=== PATIENT | male | born 1995 | race Caucasian/White ===

== ENCOUNTER 2020-06-30 23:19 | Emergency (ER) | payer SELFPAY ==
[2020-06-30 23:23] VITALS: BP 159/91; PULSE 88; RESP 17; TEMP 36.7; O2SAT 99; BMI 25.1
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
[2020-07-01] MEDS: silver sulfadiazine cream 1% 50 gm 1 APPLIC TOPICAL (00:01)
== END 2020-07-01 00:04 | disposition home or self-care (01) ==
PROVIDERS: Emergency Provider Nurse Practitioner Family
DX: T20.09XA Burn of unspecified degree of multiple sites of head, face, and neck, initial encounter (principal); X08.8XXA Exposure to other specified smoke, fire and flames, initial encounter; F17.210 Nicotine dependence, cigarettes, uncomplicated
CPT/HCPCS: 99282

== ENCOUNTER 2021-02-02 01:31 | Emergency (ER) | payer SELFPAY ==
[2021-02-02 01:36] VITALS: BP 150/69; PULSE 69; RESP 18; TEMP 36.6; O2SAT 99; BMI 38.4
--- NOTE | 2021-02-02 01:38 | ED_ITS ---
HPI - Dental/Oral General: Chief complaint: Dental/Oral Stated complaint: tooth pain Time Seen by Provider: 02/02/21 01:34 Source: patient Mode of arrival: ambulatory Limitations: no limitations History of Present Illness: HPI Narrative: 25-year-old male states has been having dental pain to left upper tooth for days that got much worse tonight. States pain is sharp in nature and rates it an 8 out of 10 denies any difficulty eating denies difficulty swallowing. Denies any fevers states it is worse with palpation improved with rest. Denies any radiation of his pain Associated symptoms: Denies fever(s) Review of Systems Const: Denies: fever(s), chills, body aches or change in appetite Eyes: Denies: blurry vision or eye discomfort ENMT: Reports: mouth pain Card: Denies: chest pain Resp: Denies: dyspnea GI: Denies: abdominal pain, nausea, vomiting or diarrhea : Denies: dysuria Musc: Denies: neck pain or back pain Skin/Breast: Denies: rash Neuro: Denies: headache(s) Psych: Denies: depression Reinaldo/Lymph: Denies: easy bruising All/Imm: Denies: urticaria PFSH ED PFSH: Social History (Updated 06/25/19 @ 13:50 by Mihaela Fisher LPN) Smoking and tobacco status: current every day smoker Alcohol intake: never Physical Exam Const: COMMON NORMALS: no acute distress and patient oriented x3 HENMT: TEETH & GINGIVA IMAGES: 1. Tenderness over tooth #13 some gingival inflammation no abscess no trismus THROAT: posterior oropharynx normal Eye: COMMON NORMALS: EOMs intact bilaterally Neck/C-Spine: COMMON NORMALS: full ROM and supple Chest: COMMONS NORMALS: normal inspection of the chest Resp: COMMON NORMALS: normal respiratory effort Cardio: COMMON NORMALS: regular rate RATE: regular rate GI: INSPECTION: Yes normal to inspection Extremity: COMMON NORMALS: normal to inspection Neuro: COMMON NORMALS: patient oriented x3 Psych: COMMON NORMALS: mental status grossly normal, Normal thought process present and cooperative THOUGHT PROCESS: Normal thought process present Skin: COMMON NORMALS: no rashes or lesions noted GENERAL SKIN EXAM: no rashes or lesions noted MDM - Dental/Oral MDM Narrative: Medical decision making narrative: Patient presents with dental pain he has no signs of trismus or abscess will place on antibiotics she is to follow-up with dentist with prescribed pain meds he is return if worsening he understands agrees the plan. Discharge Plan Discharge Patient Disposition: Home Clinical Impression: Pain, dental Condition: Stable Prescriptions: New cephalexin 500 mg capsule 500 mg PO QID 7 Days Qty: 28 RF: 0 Naprosyn 500 mg tablet 500 mg PO BID PRN (Reason: pain) Qty: 20 RF: 0 No Action fluticasone propionate 50 mcg/actuation spray,suspension 1 spray INTRANASAL BID Qty: 15.8 RF: 0 tramadol 50 mg tablet 50 mg PO TID PRN (Reason: pain) Qty: 10 RF: 0 Silvadene 1 % cream 1 applic topical BID PRN (Reason: wound healing) Qty: 50 RF: 0 Discharge Orders: Discharge ED (Routine); Ordered 02/02/21 Ordered By: Caitie Hernandez Discharge Diet: Advance as tolerated Discharge Activity: Resume usual activity Patient Instructions: Toothache (ED), Opioid Safety Coding Level of Care Code ED Dental Laboratory Assistant for Rikki Finley
[2021-02-02] MEDS: HYDROcodone-acetaminophen 7.5-325 mg Tablet 1 TAB PO (01:42)
== END 2021-02-02 01:43 | disposition home or self-care (01) ==
PROVIDERS: Emergency Provider Emergency Medicine
DX: K08.89 Other specified disorders of teeth and supporting structures (principal); F17.200 Nicotine dependence, unspecified, uncomplicated
CPT/HCPCS: 99282

== ENCOUNTER 2021-04-10 09:03 | Emergency (ER) | payer SELFPAY ==
[2021-04-10 09:12] VITALS: BP 135/74; PULSE 65; RESP 14; TEMP 36.5; O2SAT 99; BMI 31.4
--- NOTE | 2021-04-10 09:26 | W.ED.MALEGU ---
HPI - Male Genitourinary General: Chief complaint: Urogenital-Male Stated complaint: LOWER LEFT BACK/SIDE PAIN GOING INTO GROIN Time Seen by Provider: 04/10/21 09:22 Source: patient Mode of arrival: ambulatory Limitations: no limitations History of Present Illness: HPI Narrative: 25-year-old male presents to the ER today for left flank and groin pain that started about 3 hours ago. Patient reports it is a constant pain that is a burning pain. Patient reports when he tries to urinate he is unable to produce much urine and it hurts to pee. Patient rates his pain an 8 out of 10 at this time. Patient reports nausea associated. Patient denies any history of kidney stones. Patient denies any bulges in the groin. Patient has not take anything for his pain at this time. Patient denies headache, fever, chills, chest pain, shortness of breath, diarrhea, constipation. Onset (ago): hour(s) Duration: constant Location: left inguinal region and left flank Radiation: left inguinal region Severity: severe Severity scale (1-10): 8 Quality: aching and burning Relieving factors: none Associated symptoms: Reports dysuria and nausea Review of Systems General: Reports: 10 or more systems reviewed and unremarkable except in HPI and below GI: Reports: nausea : Reports: dysuria PFSH ED PFSH: Social History Smoking and tobacco status: current every day smoker Alcohol intake: never Physical Exam Const: COMMON NORMALS: average body habitus and patient oriented x3 GENERAL APPEARANCE: cooperative; not comfortable (pt appears very uncomfortable) Eye: COMMON NORMALS: conjunctivae normal CONJUNCTIVA: Yes conjunctivae normal Neck/C-Spine: COMMON NORMALS: full ROM and no lymphadenopathy Resp: COMMON NORMALS: normal respiratory effort, No retractions and clear to auscultation bilaterally EFFORT & INSPECTION: Yes able to speak in complete sentences AUSCULTATION: clear to auscultation bilaterally, no rales, no rhonchi and no wheezes Cardio: COMMON NORMALS: regular rate and regular rhythm RATE: regular rate RHYTHM: regular rhythm GI: COMMON NORMALS: Soft to palpation PALPATION: Yes Soft to palpation and Yes Tenderness to palpation present (GI) Details: LLQ : COMMON NORMALS: Yes no CVA tenderness BLADDER/KIDNEY EXAM: Yes no CVA tenderness Back/Pelvis: COMMON NORMALS: no CVA tenderness OTHER: L flank TTP Extremity: COMMON NORMALS: normal to inspection and full ROM Neuro: COMMON NORMALS: patient oriented x3, moves all extremities, no sensory deficits noted and gait normal Psych: COMMON NORMALS: mental status grossly normal, Normal thought process present and cooperative THOUGHT PROCESS: Normal thought process present Skin: COMMON NORMALS: no rashes or lesions noted GENERAL SKIN EXAM: no rashes or lesions noted Course ED course: Patient presents to the ER today for left flank pain radiating into the groin and difficulty urinating. Patient denies any history of kidney stones. We will get lab work in addition to a CT of the abdomen pelvis to rule out a kidney stone. Vital Signs: Vital signs: Vital Signs Temperature 97.7 F 04/10/21 09:12 Pulse Rate 65 04/10/21 09:12 Respiratory Rate 14 04/10/21 09:12 Blood Pressure 135/74 04/10/21 09:12 Pulse Oximetry 99 04/10/21 09:12 MDM - Male MDM Narrative: Medical decision making narrative: 25-year-old male presents to the ER today for left flank pain radiating into the groin times several hours. Patient denies any history of kidney stones. He does report pain with urination and decreased urination. On exam patient is tender in the left flank and based on history a stone is likely. CT of the abdomen pelvis does indicate a left ureteral stone near the junction and close to passing. This is small however has caused some obstruction. Patient was given a liter of fluids, Zofran, Toradol, and tamsulosin. Patient reported significant improvement in pain prior to discharge. Patient was given stop to strain his urine at home. We will send patient home with Zofran Toradol and tamsulosin. Patient should follow-up with PCP in 3 to 5 days. Return to the ER with any new or worsening symptoms. Patient verbalized understanding and is in agreement with the treatment plan. Lab Data: Attestation: I reviewed the patient's lab results. Labs: Lab Results 04/10/21 04/10/21 04/10/21 10:47 10:47 11:10 WBC 14.4 10^3/uL H 10 ^3/uL (4.0-10.0) RBC 4.81 10^6/uL 10^6 /uL (4.1-5.3) Hgb 14.9 g/dL g/dL (11.7-16.6) Hct 43.5 % % (42.0-52.0) MCV 90.4 fl fl (80-94) MCH 31.0 pg pg (28.0-34.0) MCHC 34.3 g/dL g/dL (30.0-36.0) RDW 12.7 % % (12.1-15.1) Plt Count 279 10^3/cmm 10^3 /cmm (130-400) MPV 10.3 fL fL (7.4-10.4) Neut % (Auto) 86.2 % % Lymph % (Auto) 6.5 % % [place] % (Auto) 4.6 % % Eos % (Auto) 1.7 % % Baso % (Auto) 0.5 % % Neut # (Auto) 12.38 10^3/uL H 1 0^3/uL (1.8-7.7) Lymph # (Auto) 0.9 10^3/uL 10^3/ uL (0.8-4.8) [place] # (Auto) 0.7 10^3/uL 10^3/ uL (0.2-0.9) Eos # (Auto) 0.2 10^3/uL 10^3/ uL (0.0-0.8) Baso # (Auto) 0.1 10^3/uL 10^3/ uL (0.0-0.1) Nucleated RBC % (a uto) 0 % % Nucleated RBCs # 0.0 /100WBC /100W BC Sodium 136 mmol/L mmol/L (136-145) Potassium 3.9 mmol/L mmol/L (3.5-5.1) Chloride 104 mmol/L mmol/L (98-107) Carbon Dioxide 21 mmol/L L mmol/ L (22-29) Anion Gap 14.9 (5-19) BUN 9 mg/dL mg/dL (6-20) Creatinine 0.8 mg/dL mg/dL (0.7-1.2) GFR Calculation 116.9 mL/min mL/m in (90-130) Glucose 92 mg/dL mg/dL (65-115) Calculated Osmolal ity 280 mOsm/kg L mOs m/kg (285-295) Calcium 8.9 mg/dL mg/dL (8.5-10.5) Total Bilirubin 0.5 mg/dL mg/dL (0.15-1.2) AST 75 U/L H U/L (0-40) ALT 140 U/L H U/L (0-41) Alkaline Phosphata se 80 IU/L IU/L (40-130) Total Protein 7.1 g/dL g/dL (6.6-8.7) Albumin 4.3 g/dL g/dL (3.5-5.2) Globulin 2.8 g/dL g/dL (1.3-4.6) Urine Color Dark yellow (Yellow) Urine Appearance Clear (CLEAR) Urine pH 5 (5-7) Ur Specific Gravit y 1.030 (1.005-1.030) Urine Protein Trace (Negative) Urine Glucose (UA) Norm (Normal) Urine Ketones 2+ H (Negative) Urine Blood 3+ H (Negative) Urine Nitrate Negative (Negative) Urine Bilirubin 1+ H (Negative) Urine Urobilinogen 4 mg/dL H mg/dL (Negative) Ur Leukocyte [place] ase Negative (Negative) Urine RBC 5-10 /hpf H /hpf (0-2) Urine WBC 0-4 /hpf H /hpf (0-5) Ur Squamous Epith Cells None /hpf /hpf (0-5) Calcium Oxalate Cr ystal 5-10 /hpf H /hpf Amorphous Sediment Not Reportable Urine Bacteria Trace /hpf /hpf (NONE) Urine Mucus 2+ /hpf /hpf Imaging Data: CT Abd/Pel: Radiologist's impression: [address] [address] [address] Scan Report Signed Patient: Christian Em Unit #: [id number] : [id number] Age/Sex: 25 / M ADM Date: 04/10/21 Loc: ER Room/Bed: Attending Dr: Ordering Provider/Ordering MD: Cary Orona Date of Service: 04/10/21 Procedure(s): CT kidney stone [address] Accession Number(s): [id number] Report Number: [id number] PROCEDURE INFORMATION: Exam: CT Abdomen And Pelvis Without Contrast Exam date and time: 04/10/2021 9:25 AM Age: 25 years old Clinical indication: Abdominal pain; Flank; Left; Additional info: Groin/flank pain (l side) TECHNIQUE: Imaging protocol: Computed tomography of the abdomen and pelvis without contrast. Radiation optimization: All CT scans at this facility use at least one of these dose optimization techniques: automated exposure control; mA and/or kV adjustment per patient size (includes targeted exams where dose is matched to clinical indication); or iterative reconstruction. COMPARISON: No relevant prior studies available. RADIATION DOSE METRICS: Total DLP (mGy-cm): 1564.45 FINDINGS: Liver: Mild-moderate geographic hypoattenuation of the liver is present consistent with hepatic steatosis. Gallbladder and bile ducts: Normal. No calcified stones. No ductal dilation. Pancreas: Normal. No ductal dilation. Spleen: Small splenic granulomatous calcification. Adrenal glands: Normal. No mass. Kidneys and ureters: The left pelvic ureter is mildly dilated to the level of a 4.0 mm calculus just above the ureterovesical junction. The left kidney shows mild pelviectasis and mild abdominal ureterectasis with mild perinephric stranding. Right mid renal lateral 2.0 mm calyceal calculus. Left mid-upper renal posterolateral 3.7 mm calyceal calculus. Stomach and bowel: Unremarkable. No obstruction. No mucosal thickening. Appendix: No evidence of appendicitis. Intraperitoneal space: No free air. No significant fluid collection. Vasculature: Unremarkable. No abdominal aortic aneurysm. Lymph nodes: No enlarged lymph nodes. Urinary bladder: The urinary bladder is decompressed and difficult to assess. Reproductive: Unremarkable as visualized. Bones/joints: Unremarkable. No acute fracture. Soft tissues: A tiny paraumbilical hernia containing only abdominal fat is noted. CT/CT kidney stone 43511 IMPRESSION: 1. Left obstructive uropathy secondary to a left distal pelvic ureteral calculus. 2. Bilateral renal calyceal lithiasis. 3. Fatty infiltration of the liver. Dictated By: Juan Cohen MD Signed By: Juan Cohen MD Signed Date/Time: 04/10/21 1024 DD/ 0925 Critical Care Time Critical Care Time: Critical Care Time: No Discharge Plan Discharge Patient Disposition: Home Clinical Impression: Acute unilateral obstructive uropathy Urinary tract infection Qualifiers: Urinary tract infection type: acute cystitis Hematuria presence: with hematuria Qualified Code(s): N30.01 - Acute cystitis with hematuria Condition: Stable Prescriptions: New ketorolac 10 mg tablet 10 mg PO Q8H PRN (Reason: pain) 3 Days RF: 0 tamsulosin 0.4 mg capsule 0.4 mg PO DAILY Qty: 14 RF: 0 Zofran 4 mg tablet 4 mg PO Q8H PRN (Reason: nausea and vomiting) 4 Days RF: 0 Cipro 250 mg tablet 250 mg PO BID Qty: 10 RF: 0 No Action fluticasone propionate 50 mcg/actuation spray,suspension 1 spray INTRANASAL BID Qty: 15.8 RF: 0 Naprosyn 500 mg tablet 500 mg PO BID PRN (Reason: pain) Qty: 20 RF: 0 tramadol 50 mg tablet 50 mg PO TID PRN (Reason: pain) Qty: 10 RF: 0 Silvadene 1 % cream 1 applic topical BID PRN (Reason: wound healing) Qty: 50 RF: 0 Discharge Orders: Discharge ED (Routine); Ordered 04/10/21 Ordered By: Cary Orona Discharge Diet: Usual diet Discharge Activity: Resume usual activity Patient Instructions: Kidney Stones (ED), How to Strain Your Urine (ED), Opioid Safety Activity Restrictions/Additional Instructions: Take ketorolac, Zofran, and tamsulosin as prescribed. Take antibiotic as prescribed. Push fluids. Follow-up with PCP in 2 to 3 days. Strain urine until stone passes. Return to the ER with any new or worsening symptoms. Coding Level of Care Code ED Veneer Glue Jointer Feedback for Rikki Finley Exam Comprehensive
[2021-04-10] MEDS: sodium chloride 0.9% 1,000 ML 999 ML IV (10:15)
[2021-04-10] MEDS: ketorolac 30 mg/mL INJ 15 MG IVP (10:20)
[2021-04-10] MEDS: ondansetron 2 mg/ML SDV 2 mL 4 MG IVP (10:22)
[2021-04-10 10:57] LABS: Basophils # 0.1 10^3/uL (0.0-0.1); Basophils % 0.5 %; Eosinophils # 0.2 10^3/uL (0.0-0.8); Eosinophils % 1.7 %; Hematocrit 43.5 % (42.0-52.0); Hemoglobin 14.9 g/dL (11.7-16.6); Lymphocytes # 0.9 10^3/uL (0.8-4.8); Lymphocytes % 6.5 %; Mean Corpuscular HGB Conc 34.3 g/dL (30.0-36.0); Mean Corpuscular Volume 90.4 fl (80-94); Mean Platelet Volume 10.3 fL (7.4-10.4); Monocytes # 0.7 10^3/uL (0.2-0.9); Monocytes % 4.6 %; Neutrophils # 12.38 10^3/uL (1.8-7.7); Neutrophils % 86.2 %; Nucleated Red Blood Cells % 0 %; Platelet Count 279 10^3/cmm (130-400); Red Blood Count 4.81 10^6/uL (4.1-5.3); Red Cell Distribution Width 12.7 % (12.1-15.1); White Blood Count 14.4 10^3/uL (4.0-10.0)
[2021-04-10] MEDS: tamsulosin 0.4 mg Capsule PO (11:08)
[2021-04-10 11:21] LABS: Alanine Aminotransferase 140 U/L (0-41); Albumin Level 4.3 g/dL (3.5-5.2); Alkaline Phosphatase 80 IU/L (40-130); Anion Gap 14.9 (5-19); Aspartate Amino Transferase 75 U/L (0-40); Blood Urea Nitrogen 9 mg/dL (6-20); Calcium 8.9 mg/dL (8.5-10.5); Carbon Dioxide 21 mmol/L (22-29); Chloride 104 mmol/L (98-107); Creatinine Clr Calc Pharmacy 150.6716; Globulin 2.8 g/dL (1.3-4.6); Glomerular Filtration Rate 116.9 mL/min (90-130); Glucose 92 mg/dL (65-115); Osmolality Calculated 280 mOsm/kg (285-295); Potassium 3.9 mmol/L (3.5-5.1); Sodium 136 mmol/L (136-145); Total Bilirubin 0.5 mg/dL (0.15-1.2); Total Protein 7.1 g/dL (6.6-8.7)
[2021-04-10 11:50] LABS: Bilirubin Urine 1+ (Negative); Blood Urine 3+ (Negative); Glucose Urine UA Norm (Normal); Ketones Urine 2+ (Negative); Nitrate Urine Negative (Negative); Protein Urine Trace (Negative); Urine Appearance Clear (CLEAR); Urine Color Dark Yellow (Yellow); pH Urine 5 (5-7)
[2021-04-10 11:51] LABS: Add Urine Culture? No; Add Urine Microscopic? YES; Bacteria Urine TRACE /hpf; Leukocyte Esterase Urine Negative (Negative); Mucus Urine 2+ /hpf; Urobilinogen Urine 4 mg/dL (Negative); WBC Urine 0-4 /hpf (0-5)
--- NOTE | 2021-04-10 12:49 | PC.NURSE ---
reviewed discharge information with patient, verbalizes understanding for instructions, medications and follow up appt. pt samia from the ED with all belongings
== END 2021-04-10 12:54 | disposition home or self-care (01) ==
PROVIDERS: Emergency Provider Physician Assistant
DX: N13.9 Obstructive and reflux uropathy, unspecified (principal); N20.1 Calculus of ureter; N30.01 Acute cystitis with hematuria; F17.200 Nicotine dependence, unspecified, uncomplicated
CPT/HCPCS: 36415; 74176; 80053; 81001; 85025; 96361; 96374; 96375; 99284; J1885; J2405; J7030

== ENCOUNTER 2022-03-23 01:42 | Emergency (ER) | payer SELFPAY ==
[2022-03-23 01:49] VITALS: BP 146/80; PULSE 85; RESP 20; TEMP 36.8; O2SAT 98; BMI 28.8
--- NOTE | 2022-03-23 01:53 | ED_ITS ---
HPI - Dental/Oral General: Chief complaint: Dental/Oral Stated complaint: Dental Pain Time Seen by Provider: 03/23/22 01:43 Source: patient Mode of arrival: ambulatory Limitations: no limitations History of Present Illness: 26-year-old male who states he has had dental pain since 2 days in his left lower molar he states that he has had swelling he has noticed pain is a 7 out of 10 denies any fever denies any difficulty swallowing. He has an appoint with a dentist on the Associated symptoms: Denies fever(s) Review of Systems Const: Denies: fever(s), chills, body aches or change in appetite Eyes: Denies: blurry vision or eye discomfort ENMT: Reports: mouth pain Card: Denies: chest pain Resp: Denies: dyspnea GI: Denies: abdominal pain, nausea, vomiting or diarrhea : Denies: dysuria Musc: Denies: neck pain or back pain Skin/Breast: Denies: rash Neuro: Denies: headache(s) Psych: Denies: depression Reinaldo/Lymph: Denies: easy bruising All/Imm: Denies: urticaria PFSH ED PFSH: Medical History No pertinent past medical history Social History Smoking and tobacco status: current every day smoker Alcohol intake: never Procedures Abscess I/D Site: other (dental) Side (if applicable): left Technique: incised with #11 blade Irrigation: No Packing used?: none Nerve Block Nerve Block 1: Time out performed: Yes Local Anesthetic: bupivacaine 0.5% Amount of anesthesia used (mL): 10 Side: left Intraoral Nerve Block: inferior alveolar Procedure Successful: Yes Patient Tolerated Procedure: well Complications: none Course Vital Signs: Vital signs: Vital Signs Temperature 98.2 F 03/23/22 01:49 Pulse Rate 85 03/23/22 01:49 Respiratory Rate 20 H 03/23/22 01:49 Blood Pressure 146/80 03/23/22 01:49 Pulse Oximetry 98 03/23/22 01:49 Oxygen Delivery Me thod 03/23/22 01:49 MDM - Dental/Oral Medical Decision Making Patient presents with left lower dental pain. Dental abscess patient had a dental block and drained the abscess we will start him on antibiotics patient is to follow-up PCP and return if worsening. Discharge Plan Discharge Patient Disposition: Home Clinical Impression: Dental abscess Condition: Stable Prescriptions: New naproxen [Naprosyn] 500 mg tablet 500 mg PO BID PRN (Reason: pain) Qty: 20 0RF clindamycin HCl 300 mg capsule 300 mg PO Q8H 7 Days Qty: 21 0RF No Action fluticasone propionate 50 mcg/actuation spray,suspension 1 spray INTRANASAL BID Qty: 15.8 0RF Rx Instructions: administer into each nostril Naprosyn 500 mg tablet 500 mg PO BID PRN (Reason: pain) Qty: 20 0RF tamsulosin 0.4 mg capsule 0.4 mg PO DAILY Qty: 14 0RF Cipro 250 mg tablet 250 mg PO BID Qty: 10 0RF tramadol 50 mg tablet 50 mg PO TID PRN (Reason: pain) Qty: 10 0RF Silvadene 1 % cream 1 applic topical BID PRN (Reason: wound healing) Qty: 50 0RF Rx Instructions: apply a 1.5 mm thickness Discharge Orders: Discharge ED (Routine); Ordered 03/23/22 Ordered By: Caitie Hernandez Discharge Diet: Advance as tolerated Discharge Activity: Resume usual activity Patient Instructions: Dental Abscess (ED) Coding Level of Care Code ED Fire Equipment Operator for Rikki Finley
== END 2022-03-23 02:15 | disposition home or self-care (01) ==
PROVIDERS: Emergency Provider Emergency Medicine
DX: K04.7 Periapical abscess without sinus (principal); F17.210 Nicotine dependence, cigarettes, uncomplicated
CPT/HCPCS: 41800; 99283

== ENCOUNTER 2022-03-27 15:37 | Emergency (ER) | payer SELFPAY ==
[2022-03-27 15:52] VITALS: BP 131/87; PULSE 80; RESP 12; TEMP 36.6; O2SAT 98
--- NOTE | 2022-03-27 18:00 | ED_ITS ---
HPI - Dental/Oral General: Chief complaint: Dental/Oral Stated complaint: jaw pain Time Seen by Provider: 03/27/22 18:00 History of Present Illness: 26-year-old male patient comes in today with some swelling to the left lower jaw and pain. Patient has a dental abscess which has improved some but continues to be swollen and he is not able to control the pain at home with acetaminophen and ibuprofen. Patient denies any problems swallowing. Review of Systems ENMT: Reports: dental pain PFSH ED PFSH: Medical History No pertinent past medical history Social History Smoking and tobacco status: current every day smoker Alcohol intake: never Physical Exam Const: COMMON NORMALS: alert HENMT: HEAD & SCALP: other (Mild swelling to the left lower jaw) TEETH & GINGIVA: Yes poor dentition and Yes other Neck/C-Spine: COMMON NORMALS: full ROM Resp: COMMON NORMALS: normal respiratory effort and clear to auscultation bilaterally AUSCULTATION: clear to auscultation bilaterally Cardio: COMMON NORMALS: regular rate and regular rhythm RATE: regular rate RHYTHM: regular rhythm Extremity: COMMON NORMALS: normal to inspection Neuro: SENSORIUM/ORIENTATION: Yes alert Skin: COMMON NORMALS: turgor normal GENERAL SKIN EXAM: turgor normal Course Vital Signs: Vital signs: Vital Signs Temperature 97.8 F 03/27/22 15:52 Pulse Rate 80 03/27/22 15:52 Respiratory Rate 12 03/27/22 15:52 Blood Pressure 131/87 03/27/22 15:52 Pulse Oximetry 98 03/27/22 15:52 Oxygen Delivery Me thod 03/27/22 15:52 MDM - Dental/Oral Medical Decision Making 26-year-old male patient comes in today for abscess to the left lower jaw. Patient has poor dentition. Patient has swelling to the lateral aspect of the gingiva with a draining wound. No posterior oropharynx abnormality. Vital signs are normal. Differential diagnosis includes dental pain, dental abscess, retropharyngeal abscess. No signs of pharyngeal abscess or severe illness is noted. Patient was instructed to increase clindamycin to 300 mg 4 times a day. Patient was given some hydrocodone for severe pain. Patient was recommended to follow-up with dentist for definitive care. Discharge Plan Discharge Patient Disposition: Home Clinical Impression: Dental abscess Condition: Stable Prescriptions: New hydrocodone-acetaminophen 5-325 mg tablet 1 tab PO Q6H PRN (Reason: pain) Qty: 10 0RF Changed clindamycin HCl 300 mg capsule 300 mg PO QID 7 Days Qty: 28 0RF Discontinued tramadol 50 mg tablet 50 mg PO TID PRN (Reason: pain) Qty: 10 0RF No Action fluticasone propionate 50 mcg/actuation spray,suspension 1 spray INTRANASAL BID Qty: 15.8 0RF Rx Instructions: administer into each nostril Naprosyn 500 mg tablet 500 mg PO BID PRN (Reason: pain) Qty: 20 0RF tamsulosin 0.4 mg capsule 0.4 mg PO DAILY Qty: 14 0RF Cipro 250 mg tablet 250 mg PO BID Qty: 10 0RF Silvadene 1 % cream 1 applic topical BID PRN (Reason: wound healing) Qty: 50 0RF Rx Instructions: apply a 1.5 mm thickness Naprosyn 500 mg tablet 500 mg PO BID PRN (Reason: pain) Qty: 20 0RF Discharge Orders: Discharge ED (Routine); Ordered 03/27/22 Ordered By: James Pop Discharge Diet: Usual diet Discharge Activity: Increase activity as tolerated Patient Instructions: Dental Abscess (ED) Activity Restrictions/Additional Instructions: drink plenty of fluids with medications. increase antibiotic to 4 times a day, use acetaminophen and ibuprofen for pain control, use hydrocodone for severe pain. Follow-up with dentist for definitive care. Coding Level of Care Code ED Bending Shed Worker for Rikki Finley
== END 2022-03-27 18:18 | disposition home or self-care (01) ==
PROVIDERS: Emergency Provider Nurse Practitioner Family
DX: K04.7 Periapical abscess without sinus (principal); F17.210 Nicotine dependence, cigarettes, uncomplicated
CPT/HCPCS: 99283